=== PATIENT | female | born 1990 ===

== ENCOUNTER 2017-04-14 15:02 | Emergency (ER) | payer MEDICAID, OTHER ==
[2017-04-14 15:02] VITALS: BMI 21.9
--- NOTE | 2017-04-14 16:12 | C.PDOC ---
Time Seen by Provider: 04/14/17 15:46 Chief Complaint (Nursing): Cough, Cold, Congestion Past Medical History Vital Signs: Last Vital Signs Temp 98.6 F 04/14/17 15:20 Pulse 85 04/14/17 15:20 Resp 20 04/14/17 15:20 BP 105/68 04/14/17 15:20 Pulse Ox 97 04/14/17 15:20 - Medical History PMH: Asthma Denies: Gastritis Family History: States: Unknown Family Hx - Social History Hx Tobacco Use: No Hx Alcohol Use: No Hx Substance Use: No - Immunization History Hx Tetanus Toxoid Vaccination: No Hx Influenza Vaccination: No Hx Pneumococcal Vaccination: No ED Course And Treatment O2 Sat by Pulse Oximetry: 97 Medical Decision Making Medical Decision Making: viral syndrome x 2 weeks. sick contacts @ home. benign exam. Disposition Doctor Will See Patient In The: Office Counseled Patient/Family Regarding: Studies Performed, Diagnosis - Disposition Disposition: HOME/ ROUTINE Disposition Time: 16:12 Condition: GOOD - Clinical Impression Clinical Impression: Influenza-like illness
[2017-04-14] MEDS ORDERED: guaiFENesin 100 mg/5 ml Syrup UD PO STA (16:13)
[2017-04-14] MEDS ORDERED: guaiFENesin 100 mg/5 ml Syrup UD ONE (16:21)
[2017-04-14 16:24] VITALS: BP 107/70; PULSE 74; RESP 18; TEMP 98.3; O2SAT 99
== END 2017-04-14 16:21 | disposition home or self-care (01) ==
LOC: C.ER 15:02
DX: J11.1 Influenza due to unidentified influenza virus with other respiratory manifestations (principal)

== ENCOUNTER 2017-07-15 15:20 | Emergency (ER) | payer MEDICAID, OTHER ==
[2017-07-15 15:21] VITALS: BMI 21.9
[2017-07-15 15:33] VITALS: TEMP 98.1
[2017-07-15 16:31] LABS: BASO # 0.1 K/uL (0.0-0.2); BASO % 1.1 % (0.0-2.0); EOS % 0.3 % (0.0-4.0); HEMOGLOBIN 14.3 g/dL (11.0-16.0); LYMPH # 2.7 K/uL (1.0-4.3); LYMPH % 32.5 % (20.0-40.0); MEAN CORPUSCULAR HEMOGLOBIN 31.3 pg (27.0-31.0); MEAN CORPUSCULAR HGB CONC 35.1 g/dL (33.0-37.0); MEAN PLATELET VOLUME 7.9 fL (7.2-11.7); MONO # 0.5 K/uL (0.0-0.8); MONO % 6.1 % (0.0-10.0); NRBC % 0.1 % (0.0-2.0); RBC 4.56 Mil/uL (3.80-5.20); RED CELL DISTRIBUTION WIDTH 13.8 % (11.5-14.5); WHITE BLOOD COUNT 8.4 K/uL (4.8-10.8)
[2017-07-15 16:33] LABS: MEAN CELL VOLUME 89.3 fL (81.0-99.0)
[2017-07-15 16:37] LABS: HCG,QUALITATIVE URINE NEGATIVE (NEGATIVE)
[2017-07-15 16:42] LABS: SQUAMOUS EPITHIAL 26 /hpf (0-5); URINE BACTERIA MOD (<OCC); URINE BILIRUBIN NEGATIVE (NEGATIVE); URINE CLARITY Hazy (Clear); URINE COLOR Yellow (YELLOW); URINE GLUCOSE (UA) NORMAL (Normal); URINE LEUKOCYTE ESTERASE 2+ Leu/uL (Negative); URINE PROTEIN NEGATIVE (NEGATIVE); URINE UROBILINOGEN NORMAL mg/dL (0.2-1.0)
[2017-07-15 16:43] LABS: ALB/GLOB RATIO 1.3 (1.0-2.1); ALBUMIN 4.4 g/dL (3.5-5.0); ALT/SGPT 27 U/L (9-52); AST/SGOT 27 U/L (14-36); BLOOD UREA NITROGEN 14 mg/dL (7-17); CALCIUM 9.3 mg/dl (8.6-10.4); GFR AFRICAN-AMERICAN > 60; GFR NON-AFRICAN AMERICAN > 60
[2017-07-15 16:44] LABS: URINE BLOOD 2+ (NEGATIVE)
--- NOTE | 2017-07-15 17:43 | US ---
HISTORY: contractions, vag bleed, neg UCG, insists COMPARISON: None available. TECHNIQUE: Transvaginal pelvic ultrasound was performed. FINDINGS: UTERUS: Measures 6.3 x 3.7 x 4.5 cm. Anteverted, normal in size and appearance. No fibroid or other mass lesion seen. ENDOMETRIUM: Measures 9.0 mm in diameter. The center endometrial echo complex is normal in appearance. CERVIX: No cervical abnormality identified. RIGHT OVARY: Measures 2.9 x 1.5 x 2.7 cm. No solid mass. Normal flow. LEFT OVARY: Measures 2.5 x 1.9 x 1.3 cm. No solid mass. Normal flow. FREE FLUID: No significant free fluid noted. OTHER FINDINGS: None. IMPRESSION: Unremarkable pelvic ultrasound.
--- NOTE | 2017-07-15 18:05 | C.PDOC ---
History Of Present Illness 26 year old female presents to the ED for evaluation of "contactions" she is feeling in her abdomen. Patient is using depo shot every 3 months and the last one was on June 19. Patient also noticed some vaginal bleeding for the last couple of days. Patient went to the clinic who sent her to the ED for evaluation. Patient reports that for the last several weeks she noticed her abdomen was getting bigger and is under the impression she is . Patient took a test at home which was negative, but she feels " something is moving inside of her". Patient fever, chills, nausea, vomit, diarrhea, back pain. Time Seen by Provider: 07/15/17 15:52 Chief Complaint (Nursing): Abdominal Pain History Per: Patient History/Exam Limitations: no limitations Onset/Duration Of Symptoms: Days Current Symptoms Are (Timing): Still Present Location Of Pain/Discomfort: Diffuse Quality Of Discomfort: Other (contraction like) Exacerbating Factors: None Alleviating Factors: None Recent travel outside of the [place]: No Additional History Per: Patient Abnormal Vaginal Bleeding: Yes Past Medical History Reviewed: Historical Data, Nursing Documentation, Vital Signs Vital Signs: Last Vital Signs Temp 98.1 F 07/15/17 15:28 Pulse 88 07/15/17 18:31 Resp 18 07/15/17 18:31 BP 106/63 07/15/17 18:31 Pulse Ox 99 07/15/17 18:31 - Medical History PMH: Asthma Denies: Gastritis Surgical History: No Surg Hx Family History: States: Unknown Family Hx - Social History Hx Tobacco Use: No Hx Alcohol Use: No Hx Substance Use: No - Immunization History Hx Tetanus Toxoid Vaccination: No Hx Influenza Vaccination: No Hx Pneumococcal Vaccination: No Review Of Systems Constitutional: Negative for: Fever, Chills Cardiovascular: Negative for: Chest Pain Respiratory: Negative for: Shortness of Breath Gastrointestinal: Positive for: Abdominal Pain Genitourinary: Positive for: Vaginal Bleeding Skin: Negative for: Rash Neurological: Negative for: Weakness, Numbness Physical Exam - Physical Exam Appears: Non-toxic, No Acute Distress Skin: Normal Color, Warm, Dry Head: Atraumatic, Normacephalic Eye(s): bilateral: Normal Inspection Nose: No Discharge Oral Mucosa: Moist Neck: Normal ROM, Supple Chest: Symmetrical Cardiovascular: Rhythm Regular, No Murmur Respiratory: Normal Breath Sounds, No Rales, No Rhonchi, No Wheezing Gastrointestinal/Abdominal: Soft, No Tenderness, No Guarding, No Rebound, Other (no uterus felt) Back: No CVA Tenderness Extremity: Normal ROM, No Tenderness, No Swelling Neurological/Psych: Oriented x3, Normal Motor, Normal Sensation Gait: Steady ED Course And Treatment - Laboratory Results Result Diagrams: 07/15/17 16:21 07/15/17 16:21 O2 Sat by Pulse Oximetry: 98 (ON RA) Pulse Ox Interpretation: Normal - CT Scan/US Pelvis US Other Rad Studies (CT/US): Read By Radiologist, Radiology Report Reviewed CT/US Interpretation: Accession No. : [id number]. Patient Name / ID : SHANE [id number] / [id number]. Exam Date : 07/15/2017 16:53:26 ( Approved ). Study Comment : Sex / Age : F / 26Y. Creator : Valery Boswell MD. Dictator : Valery Boswell MD. French Comber : Atm Mechanic : Valery Boswell MD. Approver2 : Report Date : 07/15/2017 17:41:47. My Comment : . HISTORY: contractions, vag bleed, neg UCG, insists . COMPARISON: None available. TECHNIQUE: Transvaginal pelvic ultrasound was performed. FINDINGS: UTERUS: Measures 6.3 x 3.7 x 4.5 cm. Anteverted, normal in size and appearance. No fibroid or other mass lesion seen. ENDOMETRIUM: Measures 9.0 mm in diameter. The center endometrial echo complex is normal in appearance. CERVIX: No cervical abnormality identified. RIGHT OVARY: Measures 2.9 x 1.5 x 2.7 cm. No solid mass. Normal flow. LEFT OVARY: Measures 2.5 x 1.9 x 1.3 cm. No solid mass. Normal flow. FREE FLUID: No significant free fluid noted. OTHER FINDINGS: None. IMPRESSION: Unremarkable pelvic ultrasound. Medical Decision Making Medical Decision Making: Plan: * Labs * UA * Pelvic US Patient had POC negative, patient still belies she might be . Beta HCG quant was sent which was < 2.39 and an ultrasound was done and negative. Patient was d/c home, instructed to f/u with OBGYN. Disposition - Disposition Disposition: HOME/ ROUTINE Disposition Time: 18:18 Condition: STABLE Additional Instructions: Follow up with OBGYN within 1-2 days. Return to ED if feel worse. Prescriptions: Naproxen [Naprosyn] 1 tab PO BID PRN #25 tab PRN Reason: Pain Instructions: Acute Pelvic Pain (DC) Forms: [employer] (Persian) Print Language: LATVIAN - Clinical Impression Clinical Impression: Pelvic cramping - PA / [employer]PUT[employer] SCIENCE TEACHER / Resident Statement MD/DO has reviewed & agrees with the documentation as recorded. - Scribe Statement The provider has reviewed the documentation as recorded by the Scribe Javier Astudillo All medical record entries made by the Scribe were at my direction and personally dictated by me. I have reviewed the chart and agree that the record accurately reflects my personal performance of the history, physical exam, medical decision making, and the department course for this patient. I have also personally directed, reviewed, and agree with the discharge instructions and disposition.
[2017-07-15 18:32] VITALS: BP 106/63; PULSE 88; RESP 18
[2017-07-15 21:54] VITALS: O2SAT 98
== END 2017-07-15 18:32 | disposition home or self-care (01) ==
LOC: C.ER 15:20
DX: R10.2 Pelvic and perineal pain (principal)
CPT/HCPCS: 76830; 80053; 81001; 84702; 84703; 85025; 86850; 86900; 96374; 99284; J1885